=== PATIENT | male | born 1995 | race Two or more races ===

== ENCOUNTER 2022-10-10 17:16 | Emergency (ER) | payer SELFPAY ==
[2022-10-10 17:19] VITALS: BP 142/77; PULSE 72; RESP 18; TEMP 36.8; O2SAT 96; BMI 27.2
--- NOTE | 2022-10-10 17:44 | ED_ITS ---
HPI - Wound/Laceration General Chief Complaint: Wound/Laceration Stated Complaint: LACERATION Time Seen by Provider: 10/10/22 17:22 Source: patient Mode of arrival: walk-in Limitations: no limitations History of Present Illness HPI narrative: patient was reaching while installing rebar and accidentally cut the posterior aspect of the left upper arm just proximal to the left elbow. He is uncertain about his tetanus staus. He washed out the area and then the ED nurse washed the wound with hibiclens. he has no other injuries and while it is painful to do so he is able to move the left elbow through full ROM. Related Data Home Medications Medication Instructions Recorded Confirmed No Known Home Medications 10/10/22 10/10/22 Allergies Allergy/AdvReac Type Severity Reaction Status Date / Time No Known Drug Allergies Allergy Verified 10/10/22 17:25 PFSH PFS Social History Smoking status: Never smoker Exam Narrative Exam Narrative: Nurses notes and vital signs reviewed and patient is not hypoxic. afebrile General: Well-appearing and in no apparent distress. Skin: Warm, dry, no pallor noted. 2.2cm linear laceration to the posterior left upper arm just proximal to the elbow. No foreign material in the wound. The wound is gaping and will need closure. Cardiovascular: Regular Rate and Rhythm without murmur, gallop or rub. Respiratory: No accessory muscle use or respiratory distress. Musculoskeletal: Left UE with normal ROM. No bony tenderness. Neurological: A&O x4. No cranial nerve dysfunction observed. No truncal ataxia. Moves all extremities. Sensation intact. Psychiatric: Cooperative and interactive. Normal mood and affect. Constitutional Vital Signs - 24 hr 10/10/22 17:19 Temperature 98.3 F Pulse Rate [Monitor] 72 Respiratory Rate 18 Blood Pressure [Right Arm] 142/77 H Pulse Oximetry 96 Oxygen Delivery Method Room Air Course Vital Signs Vital signs: Vital Signs Temperature 98.3 F 10/10/22 17:19 Pulse Rate 72 10/10/22 17:19 Respiratory Rate 18 10/10/22 17:19 Blood Pressure 142/77 H 10/10/22 17:19 Pulse Oximetry 96 10/10/22 17:19 Oxygen Delivery Method Room Air 10/10/22 17:19 Temperature 98.3 F 10/10/22 17:19 Pulse Rate 72 10/10/22 17:19 Respiratory Rate 18 10/10/22 17:19 Blood Pressure 142/77 H 10/10/22 17:19 Pulse Oximetry 96 10/10/22 17:19 Oxygen Delivery Method Room Air 10/10/22 17:19 Discharge Plan Discharge Chief Complaint: Wound/Laceration Clinical Impression: Laceration Patient Disposition: Home, Self-Care Time of Disposition Decision: 17:56 Prescriptions / Home Meds: No Action No Known Home Medications Instructions: Laceration (ED) Additional Instructions: sutures out in 7-10 days Stand Alone Forms: Portal Instructions Referrals: Physician,Non-Staff, MD [Primary Care Provider] - 1 week Procedures ED Procedure Instructions Procedures Procedures: Laceration repair: All of the procedure was done under sterile conditions. Wound cleansed with betadine and anesthetized with local injection of approximately 4mL of lidocaine 1% without epinephrine. The wound was irrigated copiously with sterile normal saline. The wound was explored to depth and found to be free of foreign material. The laceration wound edges were well- approximated and did not require revision. Wound closed with 5 sterile 3-0 ethilon sutures in simple interrupted fashion. Patient tolerated the procedure well. The patient was neurovascularly intact post-repair. Topical bacitracin applied to the laceration and it was dressed with a dry sterile dressing. The patient will need to follow-up in the next 7-10 days for removal.
[2022-10-10] MEDS: ADACEL DIPH,PERTUSS(ACELL),TET VAC/PF 0.5 ML ADULT SYRINGE IM (17:52)
== END 2022-10-10 18:43 | disposition home or self-care (01) ==
PROVIDERS: Emergency Provider Emergency Medicine
DX: S41.112A Laceration without foreign body of left upper arm, initial encounter (principal); Z23 Encounter for immunization; W45.8XXA Other foreign body or object entering through skin, initial encounter
CPT/HCPCS: 12001; 90471; 90715; 99283